=== PATIENT | female | born 1940 | race Caucasian/White ===

== ENCOUNTER 2016-03-15 10:50 | Emergency (ER) | payer MEDICARE ==
[~2016-03-15] VITALS: Ht 165.1 cm; Wt 113.4 kg
[2016-03-15] MEDS ORDERED: BENAZEPRIL HCL40 MG ORAL (11:01)
[2016-03-15] MEDS ORDERED: METFORMIN HCL500 M1 ORAL (11:01)
[2016-03-15] MEDS ORDERED: PROMOD946 ML PO (11:01)
[2016-03-15] MEDS ORDERED: MULTIVITAMINS1 EAC8 ORAL (11:01)
[2016-03-15] MEDS ORDERED: ALLOPURINOL100 M1 ORAL (11:01)
[2016-03-15] MEDS ORDERED: ZINC SULFATE220 M1 ORAL (11:01)
[2016-03-15] MEDS ORDERED: HYDROCODON-ACE1 EA15 ORAL (11:01)
[2016-03-15] MEDS ORDERED: REPAGLINIDE0.5 MG PO (11:01)
[2016-03-15] MEDS ORDERED: VITAMIN C500 M1 ORAL (11:01)
[2016-03-15] MEDS ORDERED: AMLODIPINE BESY10 MG ORAL (11:01)
[2016-03-15] MEDS ORDERED: LOSARTAN POTASS50 MG ORAL (11:01)
[2016-03-15] MEDS ORDERED: METOPROLOL TAR100 MG ORAL (11:01)
[2016-03-15] MEDS ORDERED: CRANBERRY400 MG PO (11:01)
[2016-03-15 11:42] VITALS: BP 0/0
[2016-03-15 13:14] VITALS: BP 0/0
--- NOTE | 2016-03-15 14:15 | Emergency Room Report ---
History of Present Illness General Chief Complaint: Altered Level of Consciousness Source: Family Member, Medical Record, EMS Present Illness HPI Patient presents by paramedics for altered mental status There was initially a question of low blood sugar Paramedics give report the patient did have pulses until arrival to the emergency room however upon placing onto the gurney patient does not have any respirations Pupils are fixed and dilated and the patient is pulseless Patient has a DO NOT RESUSCITATE note accompanying her Unknown regarding vomiting unknown regarding recent trauma Patient's sister did arrive soon after She provides history that the patient was recently in the hospital also intensive care unit and was recently transferred to the [facility] Yesterday the patient appeared to be more responsive However this morning the sister was told that the patient had lost consciousness and sent to the emergency room History of illness presently was significantly limited Allergies: Uncoded Allergies: SULFA (Allergy, Unknown, 03/15/16) Patient History Limited by: medical condition Past Medical History: see triage record Pertinent Family History: unable to obtain Last Menstrual Period: na Reviewed Nursing Documentation: PMH: Agreed, PSxH: Agreed Nursing Documentation-PMH Past Medical History: No History, Except For Hx Diabetes: Yes - chronic kidney disease Review of Systems All Other Systems: limited - Other than the ones mentioned in the history of present illness all others are reviewed however they do stay limited due to the patient's mental status Physical Exam Vital Signs Date Time Temp Pulse Resp B/P Pulse Ox O2 Delivery O2 Flow Rate FiO2 03/15/16 10:44 46 6 03/15/16 11:42 0/0 0 Sp02 EP Interpretation: reviewed, abnormal - zero pulse ox, low interpretation General Appearance: other Head: normocephalic, atraumatic Eyes: bilateral eye other - Pupils are 5 mm bilaterally fixed and dilated ENT: no angioedema Neck: other - Patient is pulseless Respiratory: other - Lack of any breath sounds, no respirations Cardiovascular #1: other - No cardiac activity Gastrointestinal: soft Musculoskeletal: other - Patient is lifeless does not move any extremities Neurologic: other - Patient's GCS is 3, unresponsive Skin: pallor Lymphatic: no adenopathy Medical Decision Making Diagnostic Impression: Primary Impression: cardiopulmonary arrest ER Course Upon the patient's arrival the patient the pt lifeless there are no respirations Pupils are fixed and dilated There are no cardiac activity appreciated Bedside ultrasound was placed over the chest and there is no signs of any cardiac activity on ultrasound as well Given the patient's full DO NOT RESUSCITATE status Patient was allowed to pass without any further intervention Time of 10:54 Last Vital Signs Date Time Temp Pulse Resp B/P Pulse Ox O2 Delivery O2 Flow Rate FiO2 03/15/16 13:14 0 0 0/0 0 Status: unchanged Disposition: Condition: Referrals: MARIANNE CAO (PCP) Patient Instructions: Acute Respiratory Failure NAN REBOLLEDO D.O. Mar 15, 2016 14:15
== END 2016-03-15 10:54 | disposition expired ==
LOC: EMR 10:50 → EDBD 10:50 → EMR 10:54
DX: I46.9 Cardiac arrest, cause unspecified (principal); N18.9 Chronic kidney disease, unspecified; Z66 Do not resuscitate
CPT/HCPCS: 99282